=== PATIENT | female | born 1990 | race Two or more races ===

== ENCOUNTER 2019-04-08 08:55 | Inpatient (IN) | payer OTHER ==
[~2019-04-08] VITALS: Ht 160 cm; Wt 81.2 kg
[2019-04-08] MEDS ORDERED: PRENATAL TABLE1 EACH PO (09:50)
== END 2019-04-10 17:21 | disposition home or self-care (01) | DRG 807 ==
LOC: OB/GYN 08:55 → LDR 08:55 → OB/GYN 16:29
PROVIDERS: ADMIT Specialist
PROC: 10E0XZZ Delivery of Products of Conception, External Approach (ICD-10-PCS; principal; 2019-04-08)
PROC: 0KQM0ZZ Repair Perineum Muscle, Open Approach (ICD-10-PCS; 2019-04-08)
PROC: 3E033VJ Introduction of Other Hormone into Peripheral Vein, Percutaneous Approach (ICD-10-PCS; 2019-04-08)
PROC: 10907ZC Drainage of Amniotic Fluid, Therapeutic from Products of Conception, Via Natural or Artificial Opening (ICD-10-PCS; 2019-04-08)
PROC: 4A1HXCZ Monitoring of Products of Conception, Cardiac Rate, External Approach (ICD-10-PCS; 2019-04-08)
DX: O70.1 Second degree perineal laceration during delivery (principal); Z37.0 Single live birth; Z3A.39 39 weeks gestation of pregnancy

== ENCOUNTER 2021-09-14 20:46 | Inpatient (IN) | payer OTHER ==
[~2021-09-14] VITALS: Ht 160 cm; Wt 3.6 kg
[~2021-09-14 20:46] MED LIST: PRENATAL TABLE1 EACH PO
[2021-09-14] MEDS ORDERED: IRON 100 PLUS1 EACH PO (21:11)
[2021-09-17] MEDS ORDERED: FUSION PLUS CA1 EACH PO (17:06)
[2021-09-17] MEDS ORDERED: IBU800 MG PO (17:06)
[2021-09-17] MEDS ORDERED: SURFAK240 M1 PO (17:06)
== END 2021-09-17 17:30 | disposition home or self-care (01) | DRG 785 ==
LOC: LDR 20:46 → O/R 20:46 → PED 09-15 10:38
PROVIDERS: ADMIT Specialist; ATTEND Specialist
PROC: 0UB70ZZ Excision of Bilateral Fallopian Tubes, Open Approach (ICD-10-PCS; 2021-09-14)
PROC: 4A1HXCZ Monitoring of Products of Conception, Cardiac Rate, External Approach (ICD-10-PCS; 2021-09-14)
PROC: 10D00Z1 Extraction of Products of Conception, Low, Open Approach (ICD-10-PCS; principal; 2021-09-14 22:00)
DX: O76 Abnormality in fetal heart rate and rhythm complicating labor and delivery (principal); O36.63X0 Maternal care for excessive fetal growth, third trimester, not applicable or unspecified; Z3A.39 39 weeks gestation of pregnancy; Z37.0 Single live birth; Z20.822 Contact with and (suspected) exposure to COVID-19; Z30.2 Encounter for sterilization